=== PATIENT | male | born 1970 | race Caucasian/White ===

== ENCOUNTER 2020-06-23 16:02 | Emergency (ER) | payer SELFPAY ==
[~2020-06-23] VITALS: Ht 185 cm; Wt 83.9 kg
[2020-06-23 16:13] VITALS: BP 138/104
[2020-06-23] MEDS ORDERED: FLUORESCEIN (FLUOR-I-STRIPS) 1 MG STRP ONE (16:13)
[2020-06-23] MEDS ORDERED: TETRACAINE 0.5% OPHTH SOLN 4 ML BTL (SINGLE DOSE ONLY) ONE (16:13)
[2020-06-23] MEDS ORDERED: HYDROcodone/APAP 5 MG/325 MG (LORTAB) TAB ONE (16:13)
[2020-06-23] MEDS ORDERED: GNT.3OO351 OP (16:27)
[2020-06-23] MEDS ORDERED: ACHD5005 PO (16:27)
--- NOTE | 2020-06-23 16:28 | ED EENT ---
History of Present Illness General Chief Complaint: Eye Problems Stated Complaint: L EYE WELDING BURN Nursing Triage Note: PATIENT WELDING 0400 AM STATES REFLECTION FROM WINDOW INTO HIS SHIELD. EYE PAIN WORSEN THROUGHOUT THE DAY. REDNESS. PATIENT USING CLEAR EYES REDNESS PAIN RELIEF DROPS Source: patient Exam Limitations: no limitations History of Present Illness Date Seen by Provider: Jun 23, 2020 Time Seen by Provider: 16:22 Initial Comments To ER with a welding burn to both eyes. 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 He did have his welding helmet on but there was a window behind him and he believes the light was reflected off of the window onto the inside of his helmet subsequently burning his eyes. He did not notice any pain at the time but as the day has progressed his eyes have both become more uncomfortable red and irritated. Timing/Duration: this morning Severity: moderate Location: eye (R), eye (L) Prearrival Treatment: no prearrival treatment Associated Symptoms: denies symptoms Allergies and Home Medications Patient Home Medication List Home Medication List Reviewed: Yes Review of Systems Review of Systems Constitutional: see HPI Eyes: See HPI, Foreign Body Sensation Ears: No Symptoms Reported Nose: no symptoms reported Mouth: no symptoms reported Throat: no symptoms reported Respiratory: no symptoms reported Cardiovascular: no symptoms reported Past Glpacqn-Fdyzen-Zeflgl Hx Patient Social History Alcohol Use: Denies Use Smoking Status: Current Everyday Smoker Type Used: Cigarettes 2nd Hand Smoke Exposure: Yes Recent Infectious Disease Expo: No Recent Hopitalizations: No Seasonal Allergies Seasonal Allergies: No Physical Exam Vital Signs Vital Signs - First Documented 06/23/20 16:13 Temp 36.7 Pulse 101 Resp 20 B/P (MAP) 138/104 (115) Pulse Ox 100 O2 Delivery Room Air Height, Weight, BMI Height: '" Weight: lbs. oz. kg; 24.00 BMI Method: General Appearance: WD/WN, no apparent distress Eyes: bilateral eye PERRL, bilateral eye EOMI, bilateral eye other (Scleral injection bilaterally, very minute amount of dye uptake on the cornea bilaterally.) Ears: bilateral ear auricle normal, bilateral ear canal normal, bilateral ear TM normal Neck: non-tender, full range of motion Respiratory: normal breath sounds, no respiratory distress, no accessory muscle use Neurologic/Psychiatric: alert, normal mood/affect, oriented x 3 Skin: normal color, warm/dry Progress/Results/Core Measures Results/Orders My Orders Orders - JUNIOR WHITE APRN Hydrocodone/Apap 5/325 Tablet (Lortab 5 (06/23/20 16:13) Vital Signs/I&O 06/23/20 16:13 Temp 36.7 Pulse 101 Resp 20 B/P (MAP) 138/104 (115) Pulse Ox 100 O2 Delivery Room Air Blood Pressure Mean: 115 Departure Impression Primary Impression: Burn of cornea Disposition: HOME, SELF-CARE Condition: Stable Departure-Patient Inst. Decision time for Depature: 16:24 Patient Instructions: NO INSTRUCTIONS GIVEN Add. Discharge Instructions: 1. Antibiotic drops to each eye 2 drops every 4 hours for the next 3 days. Pain medication as directed. All discharge instructions reviewed with patient and/or family. Voiced understanding. Scripts Hydrocodone/Acetaminophen (Hydrocodone-Acetamin 5-325 mg) 1 Each Tablet 1 EACH PO Q4H PRN for PAIN-MODERATE (5-7), #10 TAB Prov: JUNIOR WHITE APRN 06/23/20 Gentamicin Sulfate (Gentak) 3.5 Gm Oint...g. 0.5 INCH OP TID, #1 TUBE Prov: JUNIOR WHITE APRN 06/23/20 Work/School Note: Work Release Form Date Seen in the Emergency Department: Jun 23, 2020 Return to Work: Jun 25, 2020 JUNIOR WHITE APRN Jun 23, 2020 16:28
== END 2020-06-23 16:31 | disposition home or self-care (01) ==
LOC: ER 16:04
DX: T26.12XA Burn of cornea and conjunctival sac, left eye, initial encounter (principal); T26.11XA Burn of cornea and conjunctival sac, right eye, initial encounter; F17.210 Nicotine dependence, cigarettes, uncomplicated; W89.0XXA Exposure to welding light (arc), initial encounter
CPT/HCPCS: 99282

== ENCOUNTER 2022-10-04 07:52 | Emergency (ER) | payer SELFPAY ==
[~2022-10-04] VITALS: Ht 185 cm; Wt 96.0 kg
[~2022-10-04 07:52] MED LIST: ACHD5005 PO; GNT.3OO351 OP
[2022-10-04 08:00] VITALS: BP 142/95
--- NOTE | 2022-10-04 08:10 | ED EENT ---
History of Present Illness General Chief Complaint: Eye Problems Stated Complaint: EYE INJ FROM WELDING Nursing Triage Note: STATES HE THINKS HE BURNT BOTH HIS EYES WHILE WELDING YESTERDAY EVENING. History of Present Illness Date Seen by Provider: Oct 04, 2022 Time Seen by Provider: 08:05 Initial Comments Patient is a 51-year-old male who presents to the emergency department with bilateral eye pain. 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 He has eaten breakfast this morning has not taken any medications. Describes right eye pain greater than left eye pain. Woke up about 2 hours ago with this pain. Timing/Duration: abrupt (2h ago) Location: eye (R), eye (L) Prearrival Treatment: no prearrival treatment Associated Symptoms: denies symptoms Allergies and Home Medications Allergies Coded Allergies: Sulfa (Sulfonamide Antibiotics) (Verified Allergy, Unknown, 10/04/22) gabapentin (Verified Allergy, Unknown, 10/04/22) Patient Home Medication List Home Medication List Reviewed: Yes Discontinued Medications Gentamicin Sulfate (Gentak) 3.5 Gm Oint...g., 0.5 INCH OP TID Discontinued Reason: No Longer Taking Prescribed by: JUNIOR WHITE on 06/23/201626 Last Action: Discontinued Hydrocodone/Acetaminophen (Hydrocodone-Acetamin 5-325 mg) 1 Each Tablet, 1 EACH PO Q4H PRN for PAIN-MODERATE (5-7) Discontinued Reason: No Longer Taking Prescribed by: JUNIOR WHITE on 06/23/201626 Last Action: Discontinued Review of Systems Review of Systems Constitutional: see HPI Eyes: Blurred Vision, Drainage, Decreased Acuity, Foreign Body Sensation, Infl ammation, Pain, Photophobia, Previous Injury Ears: No Symptoms Reported Nose: no symptoms reported Respiratory: no symptoms reported Cardiovascular: no symptoms reported Past Nyypnlb-Smmttv-Tqjseq Hx Patient Social History Tobacco Use?: Yes Smoking Status: Current Everyday Smoker Substance use?: No Alcohol Use?: No Seasonal Allergies Seasonal Allergies: No Physical Exam Vital Signs Vital Signs - First Documented 10/04/22 08:00 Temp 36.5 Pulse 85 Resp 16 B/P (MAP) 142/95 (111) Pulse Ox 96 O2 Delivery Room Air Height, Weight, BMI Height: '" Weight: lbs. oz. kg; 28.00 BMI Method: General Appearance: WD/WN, mild distress Eyes: bilateral eye EOMI, bilateral eye conjunctival inflammation, bilateral eye lid inflammation Respiratory: no respiratory distress, no accessory muscle use Neurologic/Psychiatric: alert, normal mood/affect, oriented x 3 Skin: normal color, warm/dry Procedures/Interventions Eye : Location: right eye Eye Irrigated w/ Saline (ccs): 20 Anesthesia (gtts): Tetracaine Progress/Results/Core Measures Results/Orders My Orders Orders - PRINCESS DAVIS MD Tetracaine 0.5% Ophth Sarah Sdv (Tetracai (10/04/22 08:15) Fluorescein Strips ([id number]) (10/04/22 08:15) Balanced Salt Irrigation Soln (Bss Irrig (10/04/22 08:15) Medications Given in ED Current Medications Medications Dose Ordered Sig/Mar Route Start Time Stop Time Status Last Admin Dose Admin Balanced Salt Solution 15 ml ONCE ONCE IR 10/04/22 08:15 10/04/22 08:16 DC 10/04/22 08:18 15 ML Fluorescein Sodium 1 mg ONCE ONCE OU 10/04/22 08:15 10/04/22 08:16 DC 10/04/22 08:18 1 MG Tetracaine HCl 4 ml ONCE ONCE OU 10/04/22 08:15 10/04/22 08:16 DC 10/04/22 08:16 4 ML Vital Signs/I&O 10/04/22 08:00 Temp 36.5 Pulse 85 Resp 16 B/P (MAP) 142/95 (111) Pulse Ox 96 O2 Delivery Room Air Blood Pressure Mean: 111 Progress Progress Note : Time: 08:44 Progress Note Tetracaine and fluorescein strip used to anesthetize and stain the cornea. Patient had diffuse uptake consistent with Welders burn on the right eye. Left looked pretty clear. We will start him on antibiotic drops bilaterally as he is symptomatic in both eyes. Pain medications for home as well. Return precautions provided both in verbal and written format. Ibuprofen and Tylenol dosing encouraged Departure Impression Primary Impression: Ultraviolet keratitis of right eye Disposition: 01 HOME, SELF-CARE Condition: Improved Departure-Patient Inst. Decision time for Depature: 08:48 Referrals: SEUN FERGUSON OD,LOCAL PHYSICIAN (PCP) Primary Care Physician Patient Instructions: Photokeratitis ([facility]) Add. Discharge Instructions: Antibiotic *OINTMENT* both eyes as directed (every 4 hours) on your prescription. 3-4 times a day for 3 days. Ibuprofen 3 pills (600mg) every 6 hours with food as needed for pain. You can take Hydrocodone, 1 pill every 6 hours (with an extra strength tylenol) for more severe pain. If you have persistent eye pain, drainage, increasing redness or vision changes please follow-up with an eye doctor or return to the emergency room for reevaluation. Scripts Hydrocodone/Acetaminophen (Hydrocodone-Acetamin 5-325 mg) 5 Mg-325 Mg Tablet 1 TAB PO Q6H PRN for PAIN-MODERATE (5-7), #10 TAB Prov: PRINCESS DAVIS MD 10/04/22 Erythromycin Base (Erythromycin Opthalmic Ointment) 5 Mg/Gram (0.5 %) Oint...g. 0 OP Q4H for 3 Days, #1 EA 1/2 inch Prov: PRINCESS DAVIS MD 10/04/22 Work/School Note: Work Release Form Date Seen in the Emergency Department: Oct 04, 2022 Return to Work: October 07, 2022 Images Eye 1 - Abrasion, Dye uptake (fluorescein) PRINCESS DAVIS MD Oct 04, 2022 08:10
[2022-10-04] MEDS ORDERED: FLUORESCEIN (FLUOR-I-STRIPS) 1 MG STRP OU ONE (08:15)
[2022-10-04] MEDS ORDERED: BSS 15 ML IR ONE (08:15)
[2022-10-04] MEDS ORDERED: TETRACAINE 0.5% OPHTH SOLN 4 ML BTL (SINGLE DOSE ONLY) OU ONE (08:15)
[2022-10-04] MEDS ORDERED: ACHD5005 PO (08:54)
[2022-10-04] MEDS ORDERED: ERYT1OIN6 OP (08:54)
== END 2022-10-04 09:02 | disposition home or self-care (01) ==
LOC: EDUNIT# 07:52 → ER 07:54
DX: H16.131 Photokeratitis, right eye (principal); F17.200 Nicotine dependence, unspecified, uncomplicated; Z88.2 Allergy status to sulfonamides
CPT/HCPCS: 99281